=== PATIENT | male | born 1995 | race Caucasian/White ===

== ENCOUNTER 2024-05-01 20:23 | Inpatient (IN) | payer BC, SELFPAY ==
[2024-05-01] VITALS (8 sets, daily range): BP systolic 106–146; BP diastolic 74–96; BMI 23.5; BMI 23.0
--- NOTE | 2024-05-01 16:09 | ED.GENMED ---
History of Present Illness
<Viry Lopez PA-C - Last Filed: 05/01/24 23:56>
General
Chief Complaint: Breathing Problem
Source: patient
Exam Limitations: none
Time Seen by Provider: 05/01/24 16:07
Nursing documentation reviewed up to this point in time: agreed with
Travel History
Have you had any contact with someone who has COVID-19?: No
Do you have any symptoms of coronavirus? Fever > 100 degrees, chills, cough, shortness of breath, sore throat, loss of taste or smell, muscle aches, or headache?: No
History of Present Illness
History of Present Illness:
Patient is a 29-year-old male presenting to the emergency department for evaluation of persistent cough and congestion. Patient states that he has had an ongoing productive cough with foul tasting yellow sputum and congestion for 3 weeks now.
Symptoms initially started with headache, intermittent body aches. He does also report low-grade fevers at home up to 100.6F and occasional night sweats. Over the past 2 months patient does endorse an approximately 15 pound weight loss. Patient
denies any current headache, sore throat, ear pain, abdominal pain, pain in lower extremities. Patient denies any shortness of breath.
Patient was seen in urgent care today due to persistent nature of symptoms and found to have a cavitary lesion on the chest x-ray. He was sent for further evaluation.
Patient denies any known sick contacts. No one at home is sick with similar symptoms. Patient's is expecting their first child.
Patient endorses travel to [place] at end of February. He has received all childhood vaccines. Did not receive influenza vaccine this year.
Past History
<Viry Lopez PA-C - Last Filed: 05/01/24 23:56>
Past History
ED Past Medical History: Other (Had episodes of chest pains at 10-12 yrs of age. Had EKG and US of heart. Followed up with [facility] cardiology and was cleared and played soccer for next few years with few intermittent episodes of chest pain. Chest pain
in the past 10 days feels 'different' than all those other episodes.); Negative Asthma, HTN, Hypercholesterolemia or NIDDM
ED Past Surgical History: Other (wisdom teeth)
Social History
Tobacco: Former smoker
Alcohol: Occasional
Personal:
Living: with family
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
Family History
Family History: Other (Moms brother with cardiomegally and low EF, CHF in his early 40's. Brother ignored symptoms over a period of years, when he finally went to ER CP was so bad and found to have above problems.)
Review of Systems
<Viry Lopez PA-C - Last Filed: 05/01/24 23:56>
Review of Systems
Allergies reviewed?: Yes
All Other Systems: ROS reviewed and negative except as documented in HPI and ROS
Phy Exam
<Viry Lopez PA-C - Last Filed: 05/01/24 23:56>
Physical Exam
Physical Exam:
Vitals: Patient's vital signs are stable. Afebrile
General: Patient is well appearing, no acute distress. Nontoxic-appearing
Skin: Warm and dry, no rashes or lesions
Head: Normocephalic, atraumatic
Eyes: Sclera nonicteric. EOMs intact. No nystagmus.
Throat: Protecting airway
Neck: Normal ROM, no cervical spine tenderness, no meningismus. Trachea midline
Cardiac: Regular rate and rhythm, no murmurs.
Pulm: Normal respiratory effort.
Abdomen: Abdomen soft. No abdominal tenderness.
Extremities: No evidence of cyanosis or edema. Good distal pulses.
Neuro: AAOx3. CN II-XII intact. No focal neurologic deficits.
Psychiatric: Normal affect.
Course
<Viry Lopez PA-C - Last Filed: 05/01/24 23:56>
Orders/Labs/Results
Orders:
Orders
05/01/24 Dinner
Regular
At Your Request: Full Participation
05/01/24 16:50
CRP [C-Reactive Protein] Urgent
Complete Blood Count/With Diff Urgent
Comprehensive Metabolic Panel Urgent
05/01/24 16:[address] [CT Chest W/o Iv Contrast] Urgent
Comment: cavitary RUL lesion seen on chest xray
Reason For Exam: productive cough, low grade fevers
05/01/24 17:43
AFB Culture [Acid Fast Culture & Smear] Urgent
IGNACIO Source: Sputum
Specimen Description:
Date Specimen was Collected: 05/01/24
Time Specimen was Collected: 17:36
Sputum Culture [Respiratory Culture/Gram Stain] Urgent
IGNACIO Source: Sputum
Specimen Description:
Date Specimen was Collected: 05/01/24
Time Specimen was Collected: 17:36
05/01/24 19:33
Piperacillin/Tazo 3.375 Gram [Zosyn] 3.375 gram in 50 ml IV NOW
Vancomycin 1 Gram/200 ml [Vancocin] 1 gram in 200 ml IV NOW
05/01/24 19:50
Admit/Transfer Patient As Directed
Co-Sign Provider:
Level of Care: Inpatient admission
Assign to:: Medical/Surgical
Physician / Group: gerard oliver
Diagnosis: cavitary lesion concern for bacterial vs TB
Reason for Hospitalization: cavitary lesion concern for bacterial vs TB
Expected length of stay greater than two midnights?: Yes
ELOS- Estimated Length of Stay in days: 4
I certify the patient meets the requirements for IP care: Yes
05/01/24 19:57
INFECTIOUS DISEASE CONSULT Routine
Consulting Provider: Paz Braxton
Was physician already notified: Yes
05/01/24 20:05
Code Status As Directed
Resuscitation Status: Full Code
05/01/24 21:21
Acetaminophen [Tylenol] 650 mg PO Q4HPRN PRN
05/01/24 21:21
Consult Infectious Disease [INFECTIOUS DISEASE CONSULT] Routine
Consulting Provider: Paz Braxton
Was physician already notified: Yes
Reason for consult: Cavitary lesion
Activity As Directed
Activity Level: As Tolerated
Precautions As Directed
Type of Precautions: Airborne
Vital Signs As Directed
Frequency: Per unit guidelines
Pulse Ox/spot Check [RESP] Routine
Quantity: 1
Pt Eval And Treat Routine
Activity Level: As Tolerated
DX Deep Vein Thrombosis Video Routine
05/01/24 22:00
VANCOMYCIN Pharmacy to Dose [VANCOCIN Pharmacy to Dose] 1 each Pharmacy To Prepare [Call Pharmacy To Prepare] 0 ml IV PER PROTOCOL
05/02/24 02:00
Piperacillin/Tazo 3.375 Gram [Zosyn] 3.375 gram in 50 ml IV Q6H
05/02/24 06:00
AFB Culture [Acid Fast Culture & Smear] IN AM
IGNACIO Source: Sputum
Specimen Description:
Basic Metabolic Panel IN AM
Complete Blood Count/With Diff IN AM
QuantiFERON-TB Gold Plus [S] IN AM
Sputum Culture [Respiratory Culture/Gram Stain] IN AM
IGNACIO Source: Sputum
Specimen Description:
05/02/24 18:00
Enoxaparin Sodium [Lovenox] 40 mg SC QPM
05/03/24 06:00
AFB Culture [Acid Fast Culture & Smear] IN AM
IGNACIO Source: Sputum
Specimen Description:
Basic Metabolic Panel IN AM
Complete Blood Count/With Diff IN AM
05/04/24 06:00
AFB Culture [Acid Fast Culture & Smear] IN AM
IGNACIO Source: Sputum
Specimen Description:
Basic Metabolic Panel IN AM
Complete Blood Count/With Diff IN AM
Abnormal Lab Results
05/01/24
16:50
WBC 13.1 H 10^3/uL
(4.8-10.8)
Absolute Neuts (auto) 9.8 H 10^3/uL
(1.4-6.5)
Absolute Monos (auto) 0.9 H 10^3/uL
(0.1-0.6)
Lymphocytes % 17.8 L %
(20.5-51.1)
C-Reactive Protein 61.10 H mg/L
(0.0-10.00)
05/01/24 16:50
05/01/24 16:50
Vital Signs
Initial and Last Documented VS:
Initial Vital Signs
Temp Pulse Resp BP Pulse Ox
98.3 F 87 18 146/96 98
05/01/24 15:29 05/01/24 15:29 05/01/24 15:29 05/01/24 15:29 05/01/24 15:29
Last Documented Vital Signs
Temp Pulse Resp BP Pulse Ox
98.4 F 76 16 116/78 98
05/01/24 23:20 05/01/24 23:20 05/01/24 23:20 05/01/24 23:20 05/01/24 23:20
<Jamaal Lopes, DO - Last Filed: 05/01/24 17:31>
Orders/Labs/Results
Orders:
Orders
05/01/24 Dinner
Regular
At Your Request: Full Participation
05/01/24 16:50
CRP [C-Reactive Protein] Urgent
Complete Blood Count/With Diff Urgent
Comprehensive Metabolic Panel Urgent
05/01/24 16:[address] [CT Chest W/o Iv Contrast] Urgent
Comment: cavitary RUL lesion seen on chest xray
Reason For Exam: productive cough, low grade fevers
05/01/24 17:43
AFB Culture [Acid Fast Culture & Smear] Urgent
IGNACIO Source: Sputum
Specimen Description:
Date Specimen was Collected: 05/01/24
Time Specimen was Collected: 17:36
Sputum Culture [Respiratory Culture/Gram Stain] Urgent
IGNACIO Source: Sputum
Specimen Description:
Date Specimen was Collected: 05/01/24
Time Specimen was Collected: 17:36
05/01/24 19:33
Piperacillin/Tazo 3.375 Gram [Zosyn] 3.375 gram in 50 ml IV NOW
Vancomycin 1 Gram/200 ml [Vancocin] 1 gram in 200 ml IV NOW
05/01/24 19:50
Admit/Transfer Patient As Directed
Co-Sign Provider:
Level of Care: Inpatient admission
Assign to:: Medical/Surgical
Physician / Group: gerard oliver
Diagnosis: cavitary lesion concern for bacterial vs TB
Reason for Hospitalization: cavitary lesion concern for bacterial vs TB
Expected length of stay greater than two midnights?: Yes
ELOS- Estimated Length of Stay in days: 4
I certify the patient meets the requirements for IP care: Yes
05/01/24 19:57
INFECTIOUS DISEASE CONSULT Routine
Consulting Provider: Paz Braxton
Was physician already notified: Yes
05/01/24 20:05
Code Status As Directed
Resuscitation Status: Full Code
05/01/24 21:21
Acetaminophen [Tylenol] 650 mg PO Q4HPRN PRN
05/01/24 21:21
Consult Infectious Disease [INFECTIOUS DISEASE CONSULT] Routine
Consulting Provider: Paz Braxton
Was physician already notified: Yes
Reason for consult: Cavitary lesion
Activity As Directed
Activity Level: As Tolerated
Precautions As Directed
Type of Precautions: Airborne
Vital Signs As Directed
Frequency: Per unit guidelines
Pulse Ox/spot Check [RESP] Routine
Quantity: 1
Pt Eval And Treat Routine
Activity Level: As Tolerated
DX Deep Vein Thrombosis Video Routine
05/01/24 22:00
VANCOMYCIN Pharmacy to Dose [VANCOCIN Pharmacy to Dose] 1 each Pharmacy To Prepare [Call Pharmacy To Prepare] 0 ml IV PER PROTOCOL
05/02/24 02:00
Piperacillin/Tazo 3.375 Gram [Zosyn] 3.375 gram in 50 ml IV Q6H
05/02/24 06:00
AFB Culture [Acid Fast Culture & Smear] IN AM
IGNACIO Source: Sputum
Specimen Description:
Basic Metabolic Panel IN AM
Complete Blood Count/With Diff IN AM
QuantiFERON-TB Gold Plus [S] IN AM
Sputum Culture [Respiratory Culture/Gram Stain] IN AM
IGNACIO Source: Sputum
Specimen Description:
05/02/24 18:00
Enoxaparin Sodium [Lovenox] 40 mg SC QPM
05/03/24 06:00
AFB Culture [Acid Fast Culture & Smear] IN AM
IGNACIO Source: Sputum
Specimen Description:
Basic Metabolic Panel IN AM
Complete Blood Count/With Diff IN AM
05/04/24 06:00
AFB Culture [Acid Fast Culture & Smear] IN AM
IGNACIO Source: Sputum
Specimen Description:
Basic Metabolic Panel IN AM
Complete Blood Count/With Diff IN AM
Abnormal Lab Results
05/01/24
16:50
WBC 13.1 H 10^3/uL
(4.8-10.8)
Absolute Neuts (auto) 9.8 H 10^3/uL
(1.4-6.5)
Absolute Monos (auto) 0.9 H 10^3/uL
(0.1-0.6)
Lymphocytes % 17.8 L %
(20.5-51.1)
C-Reactive Protein 61.10 H mg/L
(0.0-10.00)
05/01/24 16:50
05/01/24 16:50
Vital Signs
Initial and Last Documented VS:
Initial Vital Signs
Temp Pulse Resp BP Pulse Ox
98.3 F 87 18 146/96 98
05/01/24 15:29 05/01/24 15:29 05/01/24 15:29 05/01/24 15:29 05/01/24 15:29
Last Documented Vital Signs
Temp Pulse Resp BP Pulse Ox
98.4 F 76 16 116/78 98
05/01/24 23:20 05/01/24 23:20 05/01/24 23:20 05/01/24 23:20 05/01/24 23:20
<Viry Lopez PA-C - Last Filed: 05/01/24 23:56>
MDM/Problems Addressed
Differential Diagnosis Includes:
Not limited to: Fungal infection, pulmonary abscess, tuberculosis, pneumonia, malignancy
MDM/Problems Addressed:
29-year-old male presenting with 3 weeks of cough, congestion associated with low-grade fever, chills, body aches. Also noted 15 pound weight loss over the past few months. Seen in urgent care earlier today with chest x-ray that showed possible
cavitary lesion in right upper lobe. Sent to emergency department for further evaluation. Recent travel to [place] in February. Otherwise no known sick contacts. Vital stable. Patient is afebrile. Exam as above. Patient is non toxic appearing.
Lungs clear bilaterally. Will check labs, chest CT for further evaluation of lesion in right lung. Did discuss with infectious disease and will place patient on airborne precaution. Will evaluate for possible tuberculosis. Sputum culture, AFB
sputum culture x 3, quant gold ordered. Patient otherwise comfortable at this time. Will monitor closely reassess.
Labs noted. Mild leukocytosis of 13.1, no left shift.. Otherwise no clinically significant abnormalities. Chest CT does show a loculated thick-walled cavitary lesion in the posterior aspect of the right upper lobe. Pulmonary abscess versus
malignancy. Clinically�most suspicious for pulmonary abscess. Will start patient on IV antibiotics, bank/Zosyn. Will admit patient to hospitalist service for further evaluation/management. Plan for likely biopsy with IR/CT surgery. ID will
consult in the morning. Discussed with patient. Patient mated to hospitalist
Chronic conditions affecting care:
N/A
Acute Exacerbation and/or Progression of Chronic Illness:
N/A
<Viry Lopez PA-C - Last Filed: 05/01/24 23:56>
*Radiology
Radiology exam reviewed: preliminary read by ED provider and radiology read reviewed
*Pulse Oximetry
Patient hypoxic: no
*EKG
Interpreted by ED Provider?: NA
*Oyster Tonger Interpretation
Rate: Oyster Tonger- N/A
*Critical Care Note
Total Time (30-74mins, 75-104mins- exclusive of procedures): Not Applicable
Data Reviewed
Review of Other/Old Records Reveals: Radiology Studies (X-ray performed outpatient at urgent care)
Source: previous radiology exam
<Viry Lopez PA-C - Last Filed: 05/01/24 23:56>
Patient Management
Discussion with other providers: Hospitalist and Rolling Machine Operator (Infectious disease)
ED Attending Note
<Viry Lopez PA-C - Last Filed: 05/01/24 23:56>
-
Portions of this chart may have been created with voice recognition software.� Occasional wrong word or��sound alike� substitutions may have occurred due to the inherent limitations of voice recognition software.
<Jamaal Lopes DO - Last Filed: 05/01/24 17:31>
ED Attending Note
Patient seen and examined by attending physician: Yes
I performed a history and physical exam of patient and discussed management with resident, I reviewed resident's note and agree with documented findings and plan of care.: Yes
ED Attending Note:
I have reviewed and agree with history and treatment plan by Viry Lopez. Patient is nontoxic well-appearing. Clear lungs. Ongoing cough and congestion. Chest x-ray with possible cavitary versus rounded lesion. Will perform testing for TB,
and sputum cultures. CT chest ordered
Discharge Plan
Departure
Patient Disposition: Admit
Date of Disposition: 05/01/24
Time of Disposition: :24
Presentation/result/management discussed w/ accepting MD/DO: Hospitalist
Discharge Problem:
Cavitary lesion of lung
Interventions
Interventions:
*Risk Screen - Suicide Last Done: 05/01/24 15:29
*General Assessment Last Done: 05/01/24 15:29
*Neglect/Abuse Screening Last Done: 05/01/24 15:29
ED- Fall Risk Assessment Last Done: 05/01/24 16:18
*ED COVID-19 Vaccine History Last Done: 05/01/24 16:18
*Nursing Disposition Last Done: 05/01/24 21:23
ED- Cardiac Assessment Last Done: 05/01/24 16:18
ED- Pulmonary Assessment Last Done: 05/01/24 16:18
Discharge Date and Time
Discharge Date/Time: 05/01/24 21:24
[2024-05-01 17:00] LABS: % Basophils 0.2 % (0-2); % Eosinophils 0.8 % (0-6); % Immature Granulocytes 0.3 % (0-0.5); % Lymphocytes 17.8 % (20.5-51.1); % Monocytes 6.7 % (1.7-9.3); % Neutrophils 74.2 % (42.2-75.2); Absolute Eosinophils 0.1 10^3/uL (0-0.7); Absolute Lymphocytes 2.3 10^3/uL (1.2-3.4); Absolute Monocytes 0.9 10^3/uL (0.1-0.6); Absolute Neutrophils 9.8 10^3/uL (1.4-6.5); Hemoglobin 13.8 g/dL (13.0-18.0); Mean Corp Hgb Conc. 34.5 g/dL (33.0-37.0); Mean Corpuscular Hgb 28.9 pg (27.0-31.0); Mean Corpuscular Volume 83.7 fL (80.0-94.0); Nucleated Red Blood Cells % 0 % (-); Platelet Count 340 10^3/uL (130-400); Red Blood Cell Count 4.78 10^6/uL (4.70-6.10); Red Cell Dist. Width 11.5 % (11.5-14.5); White Blood Cell Count 13.1 10^3/uL (4.8-10.8)
[2024-05-01 17:13] LABS: ALT (SGPT) 32 U/L (0-50); AST (SGOT) 25 U/L (17-59); Albumin 4.5 g/dl (3.5-5.0); Alkaline Phosphatase 92 U/L (38-126); Blood Urea Nitrogen 14 mg/dl (9-20); Calcium 10.1 mg/dl (8.4-10.2); Carbon Dioxide 25 mmol/L (22-30); Chloride 100 mmol/L (98-107); Estimated Creatinine Clearance > 125 ml/min; Glucose 97 mg/dl (70-99); Potassium 4.2 mmol/L (3.5-5.1); Sodium 137 mmol/L (135-145); Total Protein 7.9 g/dl (6.3-8.2); eGFR > 60.00
--- NOTE | 2024-05-01 19:45 | HPS.HSE ---
Family Physician
-
Family Physician: Bobby Decker
Chief Complaint
-
Productive cough, fevers, body aches, weight loss
History of Present Illness
29-year-old male complaining of persistent cough and congestion. He reports a foul tasting yellow sputum over the past 1.5 weeks and productive yellow sputum for the past 3 weeks with headache and intermittent body aches along with low-grade fevers
up to 100.6 F and night sweats. He also reports a 15 pound weight loss over the past 2 months. He denies any current headache, sore throat, shortness of breath, negative hemoptysis, chest pain, palpitations, abdominal pain, nausea, vomiting,
diarrhea. He denies any sick contacts, he does report travel to [place] at beginning of February. He reports he was on a business trip stayed at the hotel in the [place] with his did not have any excursions. He does report he did receive all
childhood vaccines including up-to-date Tdap 2 years ago. He denies any past medical history. Past surgical history includes wisdom teeth extraction
Medical History
Past Medical History
Past Medical History: Reports None
Past Surgical History: Reports Other
Additional Past Surgical History:
[place] teeth extraction
Social History
Tobacco: Non-smoker
Alcohol: None
Drug: Marijuana (Occasional)
Personal:
Living: With Family ( , 2 children ages 2 and 4)
Employment: Employed
Family History
Family History: Other (Mother DM 2, father healthy)
Allergies / Home Medications
Allergies reflects when Allergies were last updated in [facility].
Home Medications with original date entered in [facility]
Allergy/Medication List:
Allergies
Allergy/AdvReac Type Severity Reaction Status Date / Time
seasonal Allergy itchy eyes Uncoded 05/01/24 15:29
Home Medications
No Meds [No Current Medications] 05/01/24
Review of Systems
-
History Source: Patient
A 12 point ROS was completed and negative except as noted: Yes
Constitutional: Reports Weight Loss (15 pounds x 2 months) and Night Sweats (On and off); Denies Fever or Chills
EENT: Denies Sore Throat or Runny Nose
Respiratory: Reports Cough (Yellow in color); Denies Hemoptysis or Trouble Breathing
Cardiac: Denies Chest Pain, Diaphoresis, Palpitations or Syncope
Abdomen/GI: Denies Abdominal Pain, Nausea, Vomiting, Diarrhea, Constipated, Bloody Stools or Black Stools
: Denies Dysuria, Frequency, Flank Pain, Incontinence, Difficulty Voiding or Urgency
Musculoskeletal: Denies Joint Pain or Edema
Skin: Denies Itching or Rash
Neurological: Reports Headache; Denies Dizzy, Weakness or Numbness
Endocrine: Reports No Symptoms
Hematologic/Lymphatic: Reports No Symptoms
Psych: Reports Calm
Physical Exam
Vital Signs
Vital Signs
Temp Pulse Resp BP Pulse Ox
98.3 F 83 11 128/76 99
05/01/24 15:29 05/01/24 18:45 05/01/24 18:45 05/01/24 18:30 05/01/24 18:45
Physical Exam
General: Comfortable and Conversant; No Pain, Fever or Chills
HEENT: NormoCephalic, Anicteric, Moist mucous membranes, PERRLA, [place] Conjunctivae and No Ptosis
Respiratory: Clear; No Wheezes, Rales or Rhonchi
Cardiac: S1/S2 and Regular Rhythm; No Murmur, Rub, Gallop or Peripheral Edema
Breast: Deferred by me
GI: Soft, Non Tender, Non Distended, Normal Bowel Sounds and No Hepatosplenomegaly
Rectal: Deferred by Provider
Genito-urinary: Deferred by me
Musculoskeletal: No Clubbing, No Cyanosis and No Edema
Skin: Warm and Dry; No Rash or Jaundice
Neuro: AO x 3, No Motor Deficits, Nonfocal/grossly intact, Cranial Nerves Intact and No Sensory Deficits; No Slurred Speech, Facial Droop or Tremors
Psych: Calm
Laboratory Results
-
05/01/24 16:50
05/01/24 16:50
Laboratory Results
Total Bilirubin 1.0 mg/dl (0.2-1.3) 05/01/24 16:50
AST 25 U/L (17-59) 05/01/24 16:50
ALT 32 U/L (0-50) 05/01/24 16:50
Alkaline Phosphatase 92 U/L (38-126) 05/01/24 16:50
Data Reviewed
-
CT Scan: Report Reviewed by me
Lab Data: Labs Reviewed by me
Impression/Plan
-
Impression/plan:
Admit to MedSurg
#Cavitary lesion right upper lobe concern for pulmonary abscess versus malignancy
WBC 13.1 no shift, 98.3, CRP 61
-AFB x 3 sets, quant gold, sputum culture per ID
-Consult ID
-Consult IR for biopsy
-IV vancomycin, IV Zosyn
-Tylenol as needed fever
-Will place patient on Airborne precautions
CT chest with IV contrast: Loculated thick-walled cavitary lesion with internal air-fluid level in the lower posterior aspect of the right upper lobe measuring 4.5 x 5 x 4.5 cm differential includes cavitary pulmonary
malignancy or pulmonary abscess biopsy/aspiration would be used for further eval
DVT prophylaxis
Subcu heparin
Full code
[2024-05-01] MEDS: ZOSYN 50 IV (19:54)
--- NOTE | 2024-05-01 20:08 | W.PN.UPDATE ---
Update Note
Progress Note Update
This is an addendum to the H&P written by DAMIAN Villar on 05/01/2024.
29-year-old male no past medical history of presenting for persistent cough and congestion for the past 3 weeks associate with headache and bodyaches and low-grade fevers/night sweats as well as weight loss of 15 pounds.� At urgent care today he was
found to have cavitary lesion on chest x-ray.� He recently traveled to [place] at the end of February.� No sick contacts.
CT chest shows loculated thick-walled cavitary lesion with internal air-fluid level in the lower posterior aspect of the right upper lobe measuring 4.5 x 5 x 4.5 cm.� Clinically likely pulmonary abscess.
Sputum culture, blood cultures, AFB cultures x 3.� Vancomycin/Zosyn.� ID consulted.� IR consulted for biopsy.
[2024-05-01] MEDS: VANCOCIN 200 IV ×2 (21:07→22:06)
--- NOTE | 2024-05-01 21:30 | PTCARENOTE ---
Received pt from ED via stretcher. Ambulated to bed independently. VSS. AAOx3. No complaints of pain. Assessed and oriented to room. Pt verbalized understanding of call clay. Call clay within close reach. Will continue to monitor.
[2024-05-01 22:06] LABS: COVID-19 Antigen Negative (Negative)
[2024-05-02] MEDS: ZOSYN 50 IV ×3 (01:50→13:11)
--- NOTE | 2024-05-02 06:59 | PHA.VAN.IN ---
Assessment
- Assessment
Renal Function: Unknown baseline (SCr 0.9 in 2015)
Maximum Temperature: 98.4
Concomitant Antimicrobials: piperacillin-tazobactam
AUC Dosing Plan
- Dosing Variables
Dosing Weight (kg): 81.24
Dosing CrCl (ml/min): 125
Vd coefficient (L/kg): 0.7
- Empiric Dosing
Initial / Loading Dose: 2000mg (1000mg 05/01 2107, 1000 mg 2205) 24 mg/kg
Maintenance Regimen: 1000 mg q8h
Estimated AUC (mcg*h/mL): 514
Estimated Peak (mcg*h/mL): 30.4
Estimated Trough (mcg/ml): 14.2
Estimated Half Life (H): 6.4
- Monitoring
Peak level is ordered to be drawn (date/time): 05/03 30
Trough level is ordered to be drawn (date/time): 05/03 530
Levels to be Drawn after Dose #: 4
MRSA Screen: Ordered per protocol (PCR)
Pharmacokinetics Vancomycin I
- -
Patient Age: 29
Patient Sex: Male
Vancomycin Day #: 1
Indication: Pulmonary/Respiratory (cavitary lesion )
Requesting Provider: Gregg Villar
Pertinent Antimicrobial Allergies:
no pertinent allergies
Height / Weight:
Height 6 ft 2 in
Actual Weight 81.25 kg
- Vital Signs / Lab Results
Temp Pulse Resp BP Pulse Ox
98.4 F 76 16 116/78 98
05/01/24 23:20 05/01/24 23:20 05/01/24 23:20 05/01/24 23:20 05/01/24 23:20
Lab Results - Hematology
05/01/24 05/02/24
16:50 00:54
WBC 13.1 H Cancelled
Lab Results - Chemistry
05/01/24 05/02/24
16:50 00:54
BUN 14 Cancelled
Creatinine 0.8 Cancelled
Estimated Creat Clear > 125 Cancelled
Albumin 4.5
Microbiology Results
05/01/24 21:43 Influenza Types A & B (LISA) - Final
Nasal Swab Negative for Influenza A & B, NAAT
Negative results must be combined with clinical observations
and patient history.
Nucleic Acid Amplification test (NAAT)performed on the
[employer] platform.
05/01/24 17:43 Respiratory Culture - Final
Sputum Gram Stain - Final
[2024-05-02 07:00] VITALS: BP 124/87
[2024-05-02 07:35] LABS: % Basophils 0.2 % (0-2); % Eosinophils 2.1 % (0-6); % Immature Granulocytes 0.4 % (0-0.5); % Lymphocytes 27.7 % (20.5-51.1); % Monocytes 8.9 % (1.7-9.3); % Neutrophils 60.7 % (42.2-75.2); Absolute Eosinophils 0.2 10^3/uL (0-0.7); Absolute Lymphocytes 2.3 10^3/uL (1.2-3.4); Absolute Monocytes 0.8 10^3/uL (0.1-0.6); Absolute Neutrophils 5.1 10^3/uL (1.4-6.5); Hematocrit 38.4 % (39.0-52.0); Hemoglobin 13.3 g/dL (13.0-18.0); Mean Corp Hgb Conc. 34.6 g/dL (33.0-37.0); Mean Corpuscular Hgb 28.5 pg (27.0-31.0); Mean Corpuscular Volume 82.4 fL (80.0-94.0); Mean Platelet Volume 8.8 fL (7.4-10.4); Nucleated Red Blood Cells % 0 % (-); Platelet Count 328 10^3/uL (130-400); Red Blood Cell Count 4.66 10^6/uL (4.70-6.10); Red Cell Dist. Width 11.7 % (11.5-14.5); White Blood Cell Count 8.5 10^3/uL (4.8-10.8)
[2024-05-02] MEDS: VANCOCIN 200 IV ×3 (07:56→22:03)
[2024-05-02 08:01] LABS: Blood Urea Nitrogen 15 mg/dl (9-20); Calcium 9.8 mg/dl (8.4-10.2); Carbon Dioxide 27 mmol/L (22-30); Chloride 102 mmol/L (98-107); Estimated Creatinine Clearance 124 ml/min; Glucose 104 mg/dl (70-99); Sodium 139 mmol/L (135-145); eGFR > 60.00
--- NOTE | 2024-05-02 08:23 | CON.ID ---
Consultation
-
Date/Time Consultation Requested: May 01, 20241956
Date/Time Consultation Performed: May 02, 2024 0830
Requesting Provider: Dr. Garrett Skinner
Performing Provider: Dr. Paz Braxton
Reason for Consultation: Cavitary lung lesion
Chief Complaint / Past History
Chief Complaint
Cough, fever, weight loss
History of Present Illness
29-year-old male without significant past medical history who presented to the ER on May 01 due to finding of right upper lobe cavitary lesion at urgent care. White count 13. CAT scan shows thick walled cavity with air-fluid level. Patient
reports that his symptoms started approximately 3 weeks ago with headache and dry cough as well as low-grade fever. He had sinus congestion. His cough got worse with increased sputum production now dark yellow with a funny taste. Fevers have been
100.4. He has been having night sweats. He reports about 15 pound unintentional weight loss over the past 2 to 3 months. He attributed that to not going to the gym. No known TB exposure. 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 Early February his company
sponsored a trip to [place] for 3 days at a resort. He went on a trip with his . They did not leave the resort. Other past travel history included [place] in 2022, [place], [place] in 2016. No dental issues. He takes good care of his teeth
and flosses every day. Swallow function is fine. He has never been homeless. He has lived in the [facility] all his life.
Past History
Past Medical History: None
Additional Past Surgical History:
[place] teeth extraction.
Allergy History:
seasonal Allergy (Uncoded 05/01/24 15:29)
itchy eyes
Medications Reviewed: Yes
Current Antibiotics:
Vancomycin
Zosyn
Social History
Tobacco: Non-Smoker
Alcohol: None
Drug: Marijuana
Personal:
Living: With Family ( and 2 young children. )
Employment: Employed ([employer])
Family History
Family History: Not Pertinent
Review of Systems
Review of Systems
General: Fever and Change in Appetite
HEENT: Negative Stiff Neck, Headache or Pharyngitis
Cardiovascular: Negative Edema or Palpitations
Respiratory: Dyspnea, Cough and Sputum Production
Gasteroenterology: Other (no diarrhea); Negative Nausea or Vomiting
Genital / Urological: Negative Dysuria or Flank Pain
Endocrine: Weakness
Musculoskeletal: Negative Arthralgias
Skin / Hair / Nails: Negative Rash
Neurological: Negative Headache or Dizziness
All systems: All other systems were reviewed and were negative
Vital Signs
Temp Pulse Resp BP Pulse Ox
98.4 F 76 16 116/78 98
05/01/24 23:20 05/01/24 23:20 05/01/24 23:20 05/01/24 23:20 05/01/24 23:20
Physical Exam
Physical Exam
Constitutional: No Acute Distress
Eyes: No Conjunctival Hemorrhage and Sclera Anicteric
Pharynx: Benign
Oral: No Thrush and Other (Dentition fine )
Cardiovascular: Regular Rate and S1/S2
Pulmonary: Clear
Gastrointestinal: Soft, Non Tender, Non Distended and Normal Bowel Sounds
Genito-Urinary: Negative CVA Tenderness
Extremities: Negative Edema
Neurological: AO x 3
Lab / Diagnostic Study Results
05/02/24 06:41
05/02/24 06:42
Abs Immat Gran (auto) 0.0 10^3/uL (0-0.05) 05/02/24 06:41
Absolute Neuts (auto) 5.1 10^3/uL (1.4-6.5) 05/02/24 06:41
Absolute Lymphs (auto) 2.3 10^3/uL (1.2-3.4) 05/02/24 06:41
Absolute Monos (auto) 0.8 10^3/uL (0.1-0.6) H 05/02/24 06:41
Absolute Basos (auto) 0.0 10^3/uL (0-0.2) 05/02/24 06:41
Immature Gran % 0.4 % (0-0.5) 05/02/24 06:41
Neutrophils % 60.7 % (42.2-75.2) 05/02/24 06:41
Lymphocytes % 27.7 % (20.5-51.1) 05/02/24 06:41
Monocytes % 8.9 % (1.7-9.3) 05/02/24 06:41
Eosinophils % 2.1 % (0-6) 05/02/24 06:41
Basophils % 0.2 % (0-2) 05/02/24 06:41
C-Reactive Protein 61.10 mg/L (0.0-10.00) H 05/01/24 16:50
Microbiology Results
Micro:
05/02/24 00:54 Respiratory Culture - Pending
Sputum Gram Stain - Pending
05/01/24 21:43 Influenza Types A & B (LISA) - Final
Nasal Swab Negative for Influenza A & B, NAAT
Negative results must be combined with clinical observations
and patient history.
Nucleic Acid Amplification test (NAAT)performed on the
[employer] platform.
05/01/24 17:43 Respiratory Culture - Final
Sputum Gram Stain - Final
05/01/24 17:43 Acid Fast Bacilli Smear - Pending
Sputum Acid Fast Bacilli Culture - Pending
05/01/24 CXR Cavitary right upper lobe lesion.
05/01/[address]: There is a loculated thick-walled cavitary lesion with internal air-fluid level in the lower posterior aspect of the right upper lobe. This lesion measures approximately 4.5 x 5 x 4.5 cm
Assessment / Plan
# RUL thick-walled cavitary lesion with airfluid level
# 3 weeks cough, fever, nightsweats
# Unintentional weight loss
- Suspect lung abscess.
However, need to rule out TB
- Per IR, minimal fluid to aspirate
-Await QTB gold plus.
- Sputum AFB #1 pending. Need Sputum AFB #2 and #3.
If all 3 AFB smears neg, can dc airborne.
-Follow sputum culture.
-Narrow Zosyn to Unasyn.
-Continue Vancomycin for now pending cx.
Care Review
Plan reviewed with: Physician (Dr Skinner)
--- NOTE | 2024-05-02 09:30 | W.PN.HOSP.TC ---
Today's Communication/Plan
-
AFB
Blood cultures
Continue antibiotics
Eventual biopsy
Assessment / Plan
Assessment / Plan
29-year-old male productive cough body aches and fever with 15 pound weight loss over the past 2 months. He traveled to [place] in February. He said that the whole family was sick around that time and he never recovered completely. States that he
also has some pain on the right side when he coughs
Awake alert oriented
Cardiovascular system S1-S2 appreciated
Chest clear to auscultation
No pedal edema
No rashes
No lymph node enlargement that I can feel upper body
# Cavitary lesion right upper lobe
IR consulted for biopsy/drainage
Cytology and pathology and cultures
Currently on vancomycin and Zosyn
ID consulted
I have reached out to pulmonary and interventional radiology to see what would be the best option for biopsy EBUS versus IR guided
Check AFB
Patient on airborne precautions
# 15 pound weight loss
#Nonsmoker
#DVT prophylaxis-Lovenox
# Full code
D/W IRAD
D/W ID
Discussed with pulmonary
Discussed with at bedside who is a nurse
Anticipated Discharge: > 48 hours
Subjective/Interval History
-
Date of Service: May 02, 2024
Objective Data
-
Labs:
Laboratory Results
05/02/24 05/02/24 05/02/24
00:54 06:41 06:42
WBC Cancelled 8.5
Hgb Cancelled 13.3
Hct Cancelled 38.4 L
Plt Count Cancelled 328
Sodium Cancelled 139 Cancelled
Potassium Cancelled 5.0 Cancelled
Chloride Cancelled 102 Cancelled
Carbon Dioxide Cancelled 27 Cancelled
BUN Cancelled 15 Cancelled
Creatinine Cancelled 1.0 Cancelled
Glucose Cancelled 104 H Cancelled
Calcium Cancelled 9.8 Cancelled
Vital Signs:
Vital Signs
Temp Pulse Resp BP Pulse Ox
97.6 F 70 16 124/87 97
05/02/24 07:00 05/02/24 07:00 05/02/24 07:00 05/02/24 07:00 05/02/24 07:00
I&O
05/01/24 05/02/24 05/03/24
06:59 06:59 06:59
Intake Total 450 / 450
Balance 450 / 450
[2024-05-02 11:20] VITALS: BMI 23.0
--- NOTE | 2024-05-02 13:54 | CM ---
CM spoke with pt on phone.
Pt lives with spouse and 2 kids in a 1[address].
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
PCP is [facility] and pharmacy is [facility].
Discharge dispo home no needs.
CM to follow and assist.
--- NOTE | 2024-05-02 14:25 | CON.PUL ---
Consultation
Consultation Request
Date/Time Consultation Requested: 05/02/2024 - 1003
Date/Time Consultation Performed: 05/02/2024 - 1104
Requesting Provider: Dr. Skinner
Performing Provider: Dr. Reeys
Reason for Consultation: Abnormal Chest CT with cavitary lesion
Medical History
-
Chief Complaint: Cough + congestion
History of Present Illness:
29-year-old male with a past medical history of sinusitis who presents with cough and congestion. He apparently went to an urgent care and obtained a CXR which had concerning findings and he was recommended to obtain CT chest so he came here to the
ER. Vitals in the ER were stable and he was afebrile to 98.3 �F, saturating 98% on room air with BP 146/96. Labs showed leukocytosis to 13.1, CRP was elevated at 61, and COVID antigen was negative. Subsequent CT chest was obtained showing a
loculated thick-walled cavitary lesion in the posterior right upper lobe measuring 4.5 x 5 x 4.5. Respiratory culture + sputum AFB were collected in addition to blood cultures. Zosyn was given in the ER. He was admitted to the floor with
infectious disease consulted, antibiotics have been continued. Interventional radiology was consulted for aspiration however there is minimal fluid to aspirate so this was deferred. Patient has been also in reporting night sweats in addition to
unintentional weight loss. Pulmonary now consulted for additional management/recommendations.
When I saw the patient he was laying in bed in no acute distress. He says his cough is better but still bringing up dark yellow phlegm. He also still has a bad taste in his mouth from his phlegm which tastes sweet and foul. He says that he has 2
children at home, age 2 and 4, and him and his had a headache prior to him getting worsening symptoms. He believes that he may have caught something from his kids initially. He currently denies chest pain, abdominal pain, diarrhea, headache,
fevers or chills.
PMHx: History of sinusitis
PSHx: [place] teeth
Past Medical History
Past Medical History: Other (Above as per HPI)
Past Surgical History: Other (Above as per HPI)
Social History
Tobacco: Non-smoker (Remote history of social tobacco use when he was a teenager)
Alcohol: Occasional
Drug: Marijuana
Personal:
Living: With Family ( and 2 young children)
Employment: Employed ([employer])
Family History
Family History: CAD (Paternal uncle), Cancer (Maternal grandmother: Breast cancer), Diabetes (Maternal uncle) and Hypertension (Paternal uncle)
Allergies / Home Medications
Allergies
Allergy/AdvReac Type Severity Reaction Status Date / Time
seasonal Allergy itchy eyes Uncoded 05/01/24 15:29
Home Medications
�Medication �Instructions �Recorded �Confirmed �Last Taken �Type
No Meds [No Current Medications] 05/01/24 05/01/24 Unknown History
Review of Systems
-
History Source: Patient
All other systems: Negative unless noted
Vitals / Labs / Diagnostic Testing
Vital Signs
Temp Pulse Resp BP Pulse Ox
97.8 F 64 16 129/77 98
05/02/24 15:00 05/02/24 15:00 05/02/24 15:00 05/02/24 15:00 05/02/24 15:00
Lab Data
05/02/24 06:41
05/02/24 06:42
Microbiology
05/02/24 00:54 Sputum Gram Stain - Preliminary
05/02/24 09:40 Nose Nasal Screen MRSA (PCR) - Final
MRSA not detected - performed by PCR methodology.
05/01/24 21:43 Nasal Swab Influenza Types A & B (LISA) - Final
Negative for Influenza A & B, NAAT
Negative results must be combined with clinical observations
and patient history.
Nucleic Acid Amplification test (NAAT)performed on the
[employer] platform.
05/01/24 17:43 Sputum Respiratory Culture - Final
05/01/24 17:43 Sputum Gram Stain - Final
Diagnostic Testing:
Physical Exam
-
HEENT: Normocephalic and Anicteric
Cardiovascular: S1/S2 and Peripheral Edema (Negative)
Respiratory: Wheeze (Negative), Rales (Callahan in the right middle lung field-right upper lobe) and Rhonchi (Negative)
GI: Soft, Non Distended, Non Tender and Normal Bowel Sounds
Neurology: AO x 3 and Tremors (Negative)
Skin: Warm and Dry
General: Comfortable and Chills (Negative)
Assessment
-
Assessment: 29-year-old male with a past medical history of sinusitis who presents with cough and congestion. He apparently went to an urgent care and obtained a CXR which had concerning findings and he was recommended to obtain CT chest so he
came here to the ER. Vitals in the ER were stable and he was afebrile to 98.3 �F, saturating 98% on room air with BP 146/96. Labs showed leukocytosis to 13.1, CRP was elevated at 61, and COVID antigen was negative. Subsequent CT chest was
obtained showing a loculated thick-walled cavitary lesion in the posterior right upper lobe measuring 4.5 x 5 x 4.5. Respiratory culture + sputum AFB were collected in addition to blood cultures. Zosyn was given in the ER. He was admitted to the
floor with infectious disease consulted, antibiotics have been continued. Interventional radiology was consulted for aspiration however there is minimal fluid to aspirate so this was deferred. Patient has been also in reporting night sweats in
addition to unintentional weight loss. Pulmonary now consulted for additional management/recommendations.
Impression:
#Abnormal chest CT with posterior RUL/anterior RLL cavitary lesion with adjacent tree-in-bud/nodular opacities along the right major fissure
#Suspected RUL pneumonia/CAP with cavitation - unlikely a pulmonary abscess as no obvious air-fluid level seen upon my review of the CT chest; less likely malignancy
Plan:
- Continue ABx as per ID
- Follow up sputum Cx including respiratory Cx and AFB
- Have low suspicion for TB, however he has traveled outside the country including [place] in 2017
- Check legionella and Strep PNA urine antigens
- Maintain SpO2 >90-94% with supplemental O2 as needed
- Incentive spirometer encouraged
- If we need a formal microbiological diagnosis or if RUL lesion does not improve with ABx, then we can perform bronchoscopy with biopsy
- Replete electrolytes with K>4, Mg>2
- Maintain euglycemia with goal BG >100 and <180
- prn nebulized bronchodilators
- DVT ppx
Pulmonary service will continue to follow along.
Total time spent today was 55 minutes for this encounter. Time includes reviewing laboratory test/imaging results, reviewing pertinent medical records, obtaining and reviewing medical history, performing an appropriate exam, ordering medications,
tests and procedures. Time also includes documentation of this encounter, coordinating patient care and communicating with other healthcare professionals. Total time does not include separately billed tests performed on this date of service.
Data:
CT Chest without Contrast 05-01-2024:
There is a loculated thick-walled cavitary lesion with internal air-fluid level in the lower posterior aspect of the right upper lobe.
This lesion measures approximately 4.5 x 5 x 4.5 cm in AP, transverse and craniocaudal dimensions respectively and does traverse the major fissure into the superior segment of the right lower lobe.
Differential diagnosis includes cavitary pulmonary malignancy and pulmonary abscess.
Biopsy/aspiration would be useful for further evaluation
[2024-05-02 15:00] VITALS: BP 129/77
[2024-05-02] MEDS: UNASYN IV ×2 (17:10→23:07)
[2024-05-02] MEDS: FLUSH (NSS) 2 FLUSH IV (22:04)
[2024-05-02 23:49] VITALS: BP 119/83
[2024-05-03 01:22] LABS: Vancomycin Peak 25.6 ug/ml (18-26)
[2024-05-03] MEDS: UNASYN IV ×4 (05:34→23:19)
[2024-05-03] MEDS: FLUSH (NSS) 2 FLUSH IV (05:35)
[2024-05-03] MEDS: VANCOCIN 200 IV (06:22)
[2024-05-03 06:27] LABS: % Basophils 0.4 % (0-2); % Eosinophils 3.2 % (0-6); % Immature Granulocytes 0.4 % (0-0.5); % Lymphocytes 30.5 % (20.5-51.1); % Monocytes 8.8 % (1.7-9.3); % Neutrophils 56.7 % (42.2-75.2); Absolute Eosinophils 0.3 10^3/uL (0-0.7); Absolute Lymphocytes 2.4 10^3/uL (1.2-3.4); Absolute Monocytes 0.7 10^3/uL (0.1-0.6); Absolute Neutrophils 4.4 10^3/uL (1.4-6.5); Hemoglobin 12.9 g/dL (13.0-18.0); Mean Corp Hgb Conc. 33.9 g/dL (33.0-37.0); Mean Corpuscular Hgb 28.5 pg (27.0-31.0); Mean Corpuscular Volume 83.9 fL (80.0-94.0); Mean Platelet Volume 8.7 fL (7.4-10.4); Nucleated Red Blood Cells % 0 % (-); Platelet Count 311 10^3/uL (130-400); Red Blood Cell Count 4.53 10^6/uL (4.70-6.10); Red Cell Dist. Width 11.5 % (11.5-14.5); White Blood Cell Count 7.8 10^3/uL (4.8-10.8)
[2024-05-03 06:49] LABS: Blood Urea Nitrogen 11 mg/dl (9-20); Calcium 9.7 mg/dl (8.4-10.2); Carbon Dioxide 25 mmol/L (22-30); Chloride 105 mmol/L (98-107); Estimated Creatinine Clearance > 125 ml/min; Glucose 103 mg/dl (70-99); Sodium 140 mmol/L (135-145); eGFR > 60.00
[2024-05-03 06:50] LABS: Vancomycin Trough 12.1 ug/ml (5-20)
[2024-05-03 07:30] VITALS: BP 123/78
--- NOTE | 2024-05-03 08:01 | PHA.VAN.FU ---
Vancomycin Assessment / Plan
- Assessment
Renal Function: Stable
WBC's are: WNL
In the past 24 hrs, patient has been: Afebrile
Concomitant Antimicrobials: ampicillin-sulbactam
- Assessment - Therapeutic Drug Monitoring
Extrapolated Cmax (mcg/mL): 31.7
Peak level was drawn: Appropriately
Extrapolated Cmin (mcg/mL): 11.8
Trough Drawn: Appropriately
Levels were drawn: At steady state (post 4th dose)
Calculated AUC (mcg*h/mL): 489
Calculated ke: 0.1405
Calculated half life (H): 4.9
Calculated Vd (L): 43.62
Calculated Vanc CL (ml/min): 102
- Dosing Plan
Continue: vanc 1000mg q8h
- Monitoring Plan
No level(s) ordered at this time: consider in a couple days to assess accumulation
- Follow Up
Pharmacy will continue to follow.
Vancomycin Follow UP
- -
Patient Age: 29
Patient Sex: Male
Vancomycin Day #: 2
Indication: Pulmonary/Respiratory (cavitary lesion )
Requesting Provider: Gregg Villar/ Dr Braxton
Pertinent Antimicrobial Allergies:
no pertinent allergies
Height / Weight:
Height 6 ft 2 in
Actual Weight 81.25 kg
- Vital Signs / Lab Results
Temp Pulse Resp BP Pulse Ox
98.0 F 71 18 123/78 98
05/03/24 07:30 05/03/24 07:30 05/03/24 07:30 05/03/24 07:30 05/03/24 07:30
Lab Results - Hematology
05/01/24 05/02/24 05/02/24
16:50 00:54 06:41
WBC 13.1 H Cancelled 8.5
05/03/24
05:54
WBC 7.8
Lab Results - Chemistry
05/01/24 05/02/24 05/02/24
16:50 00:54 06:41
BUN 14 Cancelled 15
Creatinine 0.8 Cancelled 1.0
Estimated Creat Clear > 125 Cancelled 124
Albumin 4.5
05/02/24 05/03/24
06:42 05:54
BUN Cancelled 11
Creatinine Cancelled 0.8
Estimated Creat Clear Cancelled > 125
Albumin
Microbiology Results
05/02/24 19:19 Legionella Urinary Antigen - Final
Urine Negative for Legionella pneumophila Serogroup 1 antigen.
A negative result does not rule out the possiblity of
Legionella infection due to other serogroups or species of
Legionella. Clinical correlation is recommended.
Streptococcus pneumoniae Antigen (M - Final
Negative for Streptococcus pneumoniae antigen.
A negative result does not exclude infection with
Streptococcus pneumoniae. Clinical correlation is
recommended.
05/02/24 00:54 Gram Stain - Preliminary
Sputum
05/02/24 09:40 Nasal Screen MRSA (PCR) - Final
Nose MRSA not detected - performed by PCR methodology.
05/01/24 21:43 Influenza Types A & B (LISA) - Final
Nasal Swab Negative for Influenza A & B, NAAT
Negative results must be combined with clinical observations
and patient history.
Nucleic Acid Amplification test (NAAT)performed on the
[employer] platform.
05/01/24 17:43 Respiratory Culture - Final
Sputum Gram Stain - Final
Therapeutic Drug Monitoring
Vancomycin Peak 25.6 ug/ml (18-26) 05/03/24 00:34
Vancomycin Trough 12.1 ug/ml (5-20) 05/03/24 05:54
--- NOTE | 2024-05-03 09:45 | W.PN.PUL3 ---
Today's Communication / Plan
-
Antibiotics as per ID
Up OOB as tolerated
Follow-up QuantiFERON
Follow-up sputum cultures including AFB
Recommend repeating CT chest in approximately 6-8 weeks to follow right upper lobe cavitary lesion to resolution
Assessment
-
Assessment: 29-year-old male with a past medical history of sinusitis who presents with cough and congestion. He apparently went to an urgent care and obtained a CXR which had concerning findings and he was recommended to obtain CT chest so he
came here to the ER. Vitals in the ER were stable and he was afebrile to 98.3 �F, saturating 98% on room air with BP 146/96. Labs showed leukocytosis to 13.1, CRP was elevated at 61, and COVID antigen was negative. Subsequent CT chest was
obtained showing a loculated thick-walled cavitary lesion in the posterior right upper lobe measuring 4.5 x 5 x 4.5. Respiratory culture + sputum AFB were collected in addition to blood cultures. Zosyn was given in the ER. He was admitted to the
floor with infectious disease consulted, antibiotics have been continued. Interventional radiology was consulted for aspiration however there is minimal fluid to aspirate so this was deferred. Patient has been also in reporting night sweats in
addition to unintentional weight loss. Pulmonary now consulted for additional management/recommendations.
Impression:
#Abnormal chest CT with posterior RUL/anterior RLL cavitary lesion with adjacent tree-in-bud/nodular opacities along the right major fissure
#Suspected RUL pneumonia/CAP with cavitation - unlikely a pulmonary abscess as no obvious air-fluid level seen upon my review of the CT chest; less likely malignancy
Plan:
- Continue ABx as per ID - currently on Unasyn s/p vanco/zosyn x 2 days
- Follow up sputum Cx including respiratory Cx and AFB
- Have low suspicion for TB, however he has traveled outside the country including [place] in 2017
- QuantiFERON is pending
- Legionella and Strep PNA urine antigens are both negative
- Maintain SpO2 >90-94% with supplemental O2 as needed
- Incentive spirometer encouraged
- If we need a formal microbiological diagnosis or if RUL lesion does not improve with ABx, then we can perform bronchoscopy with biopsy
- Replete electrolytes with K>4, Mg>2
- Maintain euglycemia with goal BG >100 and <180
- prn nebulized bronchodilators
- DVT ppx
Pulmonary service will continue to follow along. He ultimately will need to obtain repeat imaging with CT chest in about 6-8 weeks. I can arrange for this to be done and see him in the office.
Total time spent today was 35 minutes for this encounter. Time includes reviewing laboratory test/imaging results, reviewing pertinent medical records, obtaining and reviewing medical history, performing an appropriate exam, ordering medications,
tests and procedures. Time also includes documentation of this encounter, coordinating patient care and communicating with other healthcare professionals. Total time does not include separately billed tests performed on this date of service.
Data:
CT Chest without Contrast 05-01-2024:
There is a loculated thick-walled cavitary lesion with internal air-fluid level in the lower posterior aspect of the right upper lobe.
This lesion measures approximately 4.5 x 5 x 4.5 cm in AP, transverse and craniocaudal dimensions respectively and does traverse the major fissure into the superior segment of the right lower lobe.
Differential diagnosis includes cavitary pulmonary malignancy and pulmonary abscess.
Biopsy/aspiration would be useful for further evaluation
Subjective Data
-
Date of Service:
Date of Service: May 03, 2024
Chief Complaint: Pulmonary Follow Up
Subjective:
Patient seen and evaluated today at bedside. He feels much better, coughing less and bringing up less phlegm. Still has a putrid taste of his sputum but it is not worsening. Afebrile overnight. All sputum cultures are still pending. He denies
chest pain, shortness of breath, abdominal pain, fevers or chills.
Review of Systems
General: Other (Negative unless mentioned above)
Objective Data
Data Reviewed
Vital Signs / I&O / Oxygen:
Vital Signs
Temp Pulse Resp BP Pulse Ox
98.0 F 71 18 123/78 98
05/03/24 07:30 05/03/24 07:30 05/03/24 07:30 05/03/24 07:30 05/03/24 07:30
Intake and Output
05/02/24 05/03/24 05/04/24
06:59 06:59 06:59
Intake Total 450 / 450 1620 / 1620
Balance 450 / 450 1620 / 1620
SaO2 98
Physical Exam
General: Respiratory Distress (Negative) and Comfortable
HEENT: Normocephalic and Anicteric
Cardiovascular: S1-S2 and Peripheral Edema (Negative)
Respiratory: Wheeze (Negative), Crackles (Right middle lung field), Rhonchi (Negative) and Non-Labored Respirations
GI: Soft, Non Distended, Non Tender and Normal Bowel Sounds
Neurology: AO x 3 and Tremors (Negative)
Skin: Warm and Dry
Labs/Micro/Reports
Lab Data
05/03/24 05:54
05/03/24 05:54
Microbiology
05/02/24 00:54 Sputum Respiratory Culture - Preliminary
Usual Respiratory Jaquelin
05/02/24 00:54 Sputum Gram Stain - Preliminary
05/02/24 19:19 Urine Legionella Urinary Antigen - Final
Negative for Legionella pneumophila Serogroup 1 antigen.
A negative result does not rule out the possiblity of
Legionella infection due to other serogroups or species of
Legionella. Clinical correlation is recommended.
05/02/24 19:19 Urine Streptococcus pneumoniae Antigen (M - Final
Negative for Streptococcus pneumoniae antigen.
A negative result does not exclude infection with
Streptococcus pneumoniae. Clinical correlation is
recommended.
05/02/24 09:40 Nose Nasal Screen MRSA (PCR) - Final
MRSA not detected - performed by PCR methodology.
05/01/24 21:43 Nasal Swab Influenza Types A & B (LISA) - Final
Negative for Influenza A & B, NAAT
Negative results must be combined with clinical observations
and patient history.
Nucleic Acid Amplification test (NAAT)performed on the
[employer] platform.
05/01/24 17:43 Sputum Respiratory Culture - Final
05/01/24 17:43 Sputum Gram Stain - Final
--- NOTE | 2024-05-03 11:28 | W.PN.ID1 ---
Date of Service
Date of Service: May 03, 2024
Today's Communication
Continue Unasyn.
Assessment / Plan
# RUL thick-walled cavitary lesion with airfluid level
# 3 weeks cough, fever, nightsweats
# Unintentional weight loss
- Suspect lung abscess.
- In process of TB workup
- Per IR, minimal fluid to aspirate
-Await QTB gold plus.
- Sputum AFB #1 , #2 pending. Need Sputum AFB #3.
If all 3 AFB smears neg, can dc airborne.
-Sputum culture: usual resp alejandro.
- Continue Unasyn.
-DC Vancomycin.
Chief Complaint
-: Pneumonia
Subjective / Review of Systems
Reports no further nightsweats. Cough improving, less productive.
Vital Signs / Physical Exam
Vital Signs
Vital Signs
Temp Pulse Resp BP Pulse Ox
98.0 F 71 18 123/78 98
05/03/24 07:30 05/03/24 07:30 05/03/24 07:30 05/03/24 07:30 05/03/24 07:30
Physical Exam
Constitutional: No Acute Distress and Comfortable
Cardiovascular: Regular Rate and S1/S2
Pulmonary: Clear
Gastrointestinal: Soft, Non Tender and Non Distended
Objective Data
Lab Data
Lab Results
05/03/24 05:54
05/03/24 05:54
Estimated Creat Clear > 125 ml/min 05/03/24 05:54
Total Bilirubin 1.0 mg/dl (0.2-1.3) 05/01/24 16:50
AST 25 U/L (17-59) 05/01/24 16:50
ALT 32 U/L (0-50) 05/01/24 16:50
Alkaline Phosphatase 92 U/L (38-126) 05/01/24 16:50
C-Reactive Protein 61.10 mg/L (0.0-10.00) H 05/01/24 16:50
Most recent labs reviewed.
Micro Results:
05/02/24 10:40 Blood Culture - Preliminary
Blood/Venous No Growth in 24 hours- Final report to follow
05/02/24 10:40 Blood Culture - Preliminary
Blood/Venous No Growth in 24 hours- Final report to follow
05/02/24 00:54 Respiratory Culture - Preliminary
Sputum Usual Respiratory Alejandro
Gram Stain - Preliminary
05/02/24 19:19 Legionella Urinary Antigen - Final
Urine Negative for Legionella pneumophila Serogroup 1 antigen.
A negative result does not rule out the possiblity of
Legionella infection due to other serogroups or species of
Legionella. Clinical correlation is recommended.
Streptococcus pneumoniae Antigen (M - Final
Negative for Streptococcus pneumoniae antigen.
A negative result does not exclude infection with
Streptococcus pneumoniae. Clinical correlation is
recommended.
05/02/24 15:45 Acid Fast Bacilli Smear - Pending
Sputum Acid Fast Bacilli Culture - Pending
05/02/24 09:40 Nasal Screen MRSA (PCR) - Final
Nose MRSA not detected - performed by PCR methodology.
05/01/24 21:43 Influenza Types A & B (LISA) - Final
Nasal Swab Negative for Influenza A & B, NAAT
Negative results must be combined with clinical observations
and patient history.
Nucleic Acid Amplification test (NAAT)performed on the
[employer] platform.
05/01/24 17:43 Respiratory Culture - Final
Sputum Gram Stain - Final
05/01/24 17:43 Acid Fast Bacilli Smear - Pending
Sputum Acid Fast Bacilli Culture - Pending
05/01/24 CXR Cavitary right upper lobe lesion.
05/01/[address]: There is a loculated thick-walled cavitary lesion with internal air-fluid level in the lower posterior aspect of the right upper lobe. This lesion measures approximately 4.5 x 5 x 4.5 cm
--- NOTE | 2024-05-03 14:55 | W.PN.HOSP.TC ---
Today's Communication/Plan
-
continue IV abx and follow cultures
Assessment / Plan
Assessment / Plan
29-year-old male productive cough body aches and fever with 15 pound weight loss over the past 2 months. He traveled to [place] in February. He said that the whole family was sick around that time and he never recovered completely. States that he
also has some pain on the right side when he coughs
# Cavitary lesion right upper lobe
Currently on vancomycin and Zosyn - follow cultures. ID consulted
Pulm consulted
Per IR, minimal fluid to aspirate
Check AFB and QTB gold plus
Patient on airborne precautions
# 15 pound weight loss
#Nonsmoker
#DVT prophylaxis-Lovenox
# Full code
Anticipated Discharge: > 48 hours
Subjective/Interval History
-
Date of Service: May 03, 2024
night sweats resolved, coughing improving
denies SOB
Objective Data
-
Labs:
Laboratory Results
05/03/24
05:54
WBC 7.8
Hgb 12.9 L
Hct 38.0 L
Plt Count 311
Sodium 140
Potassium 4.0
Chloride 105
Carbon Dioxide 25
BUN 11
Creatinine 0.8
Glucose 103 H
Calcium 9.7
Vital Signs:
Vital Signs
Temp Pulse Resp BP Pulse Ox
98.0 F 71 18 123/78 98
05/03/24 07:30 05/03/24 07:30 05/03/24 07:30 05/03/24 07:30 05/03/24 07:30
I&O
05/02/24 05/03/24 05/04/24
06:59 06:59 06:59
Intake Total 450 / 450 1620 / 1620
Balance 450 / 450 1620 / 1620
Physical Exam
-
General: No Apparent Distress
HEENT: Normocephalic and Atraumatic
Respiratory: Clear to Auscultation
Cardiac: S1/S2
Genito-urinary: No Costovertebral Tender
Neuro: AO x 3
Psych: Calm
Data Reviewed
-
Total Time Spent with Patient (in minutes): 42
Labs: Labs Reviewed by me
[2024-05-03 15:35] VITALS: BP 125/79
[2024-05-03 23:00] VITALS: BP 119/77
[2024-05-04] MEDS: UNASYN IV ×4 (05:49→23:12)
[2024-05-04 06:32] LABS: % Basophils 0.4 % (0-2); % Eosinophils 3.2 % (0-6); % Immature Granulocytes 0.3 % (0-0.5); % Lymphocytes 32.2 % (20.5-51.1); % Monocytes 8.2 % (1.7-9.3); % Neutrophils 55.7 % (42.2-75.2); Absolute Eosinophils 0.2 10^3/uL (0-0.7); Absolute Lymphocytes 2.4 10^3/uL (1.2-3.4); Absolute Monocytes 0.6 10^3/uL (0.1-0.6); Absolute Neutrophils 4.2 10^3/uL (1.4-6.5); Hematocrit 38.8 % (39.0-52.0); Hemoglobin 13.2 g/dL (13.0-18.0); Mean Corpuscular Hgb 28.4 pg (27.0-31.0); Mean Corpuscular Volume 83.6 fL (80.0-94.0); Mean Platelet Volume 8.8 fL (7.4-10.4); Nucleated Red Blood Cells % 0 % (-); Platelet Count 311 10^3/uL (130-400); Red Blood Cell Count 4.64 10^6/uL (4.70-6.10); Red Cell Dist. Width 11.5 % (11.5-14.5); White Blood Cell Count 7.5 10^3/uL (4.8-10.8)
[2024-05-04 07:10] VITALS: BP 137/77
[2024-05-04 07:34] LABS: Blood Urea Nitrogen 12 mg/dl (9-20); Calcium 9.8 mg/dl (8.4-10.2); Carbon Dioxide 29 mmol/L (22-30); Chloride 103 mmol/L (98-107); Estimated Creatinine Clearance > 125 ml/min; Glucose 100 mg/dl (70-99); Potassium 4.9 mmol/L (3.5-5.1); Sodium 140 mmol/L (135-145); eGFR > 60.00
--- NOTE | 2024-05-04 09:50 | W.PN.PUL.V3 ---
Today's Communication / Plan
-
Isolation until AFB smear �3 Back
Antibiotics per infectious disease.
Close outpatient radiographic follow-up and bronchoscopy if he does not improve-currently clinically improving-hold off on bronchoscopy
Assessment
-
Assessment: 29-year-old male with a past medical history of sinusitis who presents with cough and congestion. He apparently went to an urgent care and obtained a CXR which had concerning findings and he was recommended to obtain CT chest so he
came here to the ER. Vitals in the ER were stable and he was afebrile to 98.3 �F, saturating 98% on room air with BP 146/96. Labs showed leukocytosis to 13.1, CRP was elevated at 61, and COVID antigen was negative. Subsequent CT chest was
obtained showing a loculated thick-walled cavitary lesion in the posterior right upper lobe measuring 4.5 x 5 x 4.5. Respiratory culture + sputum AFB were collected in addition to blood cultures. Zosyn was given in the ER. He was admitted to the
floor with infectious disease consulted, antibiotics have been continued. Interventional radiology was consulted for aspiration however there is minimal fluid to aspirate so this was deferred. Patient has been also in reporting night sweats in
addition to unintentional weight loss. Pulmonary now consulted for additional management/recommendations.
Impression:
#Abnormal chest CT with posterior RUL/anterior RLL cavitary lesion with adjacent tree-in-bud/nodular opacities along the right major fissure
#Suspected RUL pneumonia/CAP with cavitation - unlikely a pulmonary abscess as no obvious air-fluid level seen upon my review of the CT chest; less likely malignancy
Plan:
.
, Clinically improving.
We've not seen
Increase activity.
Isolation per protocol.
Await AFB �3.
Continue antibiotics-Per infectious disease
Infectious disease followed-correspondence reviewed.
Closely radiographic follow-up as an outpatient.
If no improvement, then bronchoscopy is recommended - hold off for now.
Have low suspicion for TB, however he has traveled outside the country including [place] in 2017
QuantiFERON is pending
Replace electrolytes.
DVT prophylaxis.
Nutrition
Early mobilization.
Reviewed with nursing
Data:
CT Chest without Contrast 05-01-2024:
There is a loculated thick-walled cavitary lesion with internal air-fluid level in the lower posterior aspect of the right upper lobe.
This lesion measures approximately 4.5 x 5 x 4.5 cm in AP, transverse and craniocaudal dimensions respectively and does traverse the major fissure into the superior segment of the right lower lobe.
Differential diagnosis includes cavitary pulmonary malignancy and pulmonary abscess.
Biopsy/aspiration would be useful for further evaluation
Subjective Data
-
Date of Service:
Date of Service: May 04, 2024
Chief Complaint: Pulmonary Follow Up and Dyspnea Follow Up
Subjective:
Feels better, less mucus production, no chest pain, abdominal pain
Review of Systems
General: Other ( per HPI)
Objective Data
Data Reviewed
Vital Signs / I&O:
Vital Signs
Temp Pulse Resp BP Pulse Ox
97.8 F 59 16 137/77 95
05/04/24 07:10 05/04/24 07:10 05/04/24 07:10 05/04/24 07:10 05/04/24 07:10
Intake and Output
05/03/24 05/04/24 05/05/24
06:59 06:59 06:59
Intake Total 1620 / 1620 1620 / 1620
Balance 1620 / 1620 1620 / 1620
SaO2: 95
Physical Exam
General: Respiratory Distress (Negative) and Comfortable
HEENT: Normocephalic and Anicteric
Cardiovascular: Regular Rhythm and Peripheral Edema (Negative)
Respiratory: Wheeze (Negative), Crackles (Right middle lung field), Rhonchi (Negative) and Non-Labored Respirations
GI: Soft, Non Distended, Non Tender and Normal Bowel Sounds
Neurology: Awake, Alert, AO x 3 and Tremors (Negative)
Skin: Warm and Dry
Labs/Micro/Reports
Lab Data
05/04/24 05:26
05/04/24 05:26
Microbiology
05/01/24 17:43 Sputum Acid Fast Bacilli Smear - Preliminary
05/01/24 17:43 Sputum Acid Fast Bacilli Culture - Preliminary
05/02/24 10:40 Blood/Venous Blood Culture - Preliminary
No Growth in 24 hours- Final report to follow
05/02/24 10:40 Blood/Venous Blood Culture - Preliminary
No Growth in 24 hours- Final report to follow
05/02/24 00:54 Sputum Respiratory Culture - Preliminary
Usual Respiratory Jaquelin
05/02/24 00:54 Sputum Gram Stain - Preliminary
05/02/24 19:19 Urine Legionella Urinary Antigen - Final
Negative for Legionella pneumophila Serogroup 1 antigen.
A negative result does not rule out the possiblity of
Legionella infection due to other serogroups or species of
Legionella. Clinical correlation is recommended.
05/02/24 19:19 Urine Streptococcus pneumoniae Antigen (M - Final
Negative for Streptococcus pneumoniae antigen.
A negative result does not exclude infection with
Streptococcus pneumoniae. Clinical correlation is
recommended.
05/02/24 09:40 Nose Nasal Screen MRSA (PCR) - Final
MRSA not detected - performed by PCR methodology.
05/01/24 21:43 Nasal Swab Influenza Types A & B (LISA) - Final
Negative for Influenza A & B, NAAT
Negative results must be combined with clinical observations
and patient history.
Nucleic Acid Amplification test (NAAT)performed on the
[employer] platform.
05/01/24 17:43 Sputum Respiratory Culture - Final
05/01/24 17:43 Sputum Gram Stain - Final
--- NOTE | 2024-05-04 11:35 | W.PN.ID1 ---
Date of Service
Date of Service: May 04, 2024
Today's Communication
Continue Unasyn.
Await AFB smear x 3 results.
Assessment / Plan
# RUL thick-walled cavitary lesion with airfluid level
# 3 weeks cough, fever, nightsweats
# Unintentional weight loss
- Pt clinically improving.
- Suspect lung abscess.
- TB workup in progress
- Per IR, minimal fluid to aspirate
- QTB gold plus pending
- Sputum AFB #1 smear negative , #2 pending. #3 pending
If all 3 AFB smears neg, can dc airborne.
-Sputum culture: usual resp alejandro.
- Continue Unasyn.
Chief Complaint
-: Pneumonia
Subjective / Review of Systems
Feels good. Sputum now minimal.
Appetitite improving.
Vital Signs / Physical Exam
Vital Signs
Vital Signs
Temp Pulse Resp BP Pulse Ox
97.8 F 59 16 137/77 95
05/04/24 07:10 05/04/24 07:10 05/04/24 07:10 05/04/24 07:10 05/04/24 09:50
Physical Exam
Constitutional: No Acute Distress and Comfortable
Cardiovascular: Regular Rate and S1/S2
Pulmonary: Clear
Gastrointestinal: Soft, Non Tender and Non Distended
Objective Data
Lab Data
Lab Results
05/04/24 05:26
05/04/24 05:26
Estimated Creat Clear > 125 ml/min 05/04/24 05:26
Total Bilirubin 1.0 mg/dl (0.2-1.3) 05/01/24 16:50
AST 25 U/L (17-59) 05/01/24 16:50
ALT 32 U/L (0-50) 05/01/24 16:50
Alkaline Phosphatase 92 U/L (38-126) 05/01/24 16:50
C-Reactive Protein 61.10 mg/L (0.0-10.00) H 05/01/24 16:50
Most recent labs reviewed.
Micro Results:
05/02/24 10:40 Blood Culture - Preliminary
Blood/Venous No Growth in 48 hours- Final report to follow
05/02/24 10:40 Blood Culture - Preliminary
Blood/Venous No Growth in 48 hours- Final report to follow
05/02/24 00:54 Respiratory Culture - Final
Sputum Usual Respiratory Alejandro
Gram Stain - Final
05/04/24 08:06 Acid Fast Bacilli Smear - Pending
Sputum Acid Fast Bacilli Culture - Pending
05/01/24 17:43 Acid Fast Bacilli Smear - Preliminary
Sputum Acid Fast Bacilli Culture - Preliminary
05/03/24 16:54 Acid Fast Bacilli Smear - Pending
Sputum Acid Fast Bacilli Culture - Pending
05/02/24 19:19 Legionella Urinary Antigen - Final
Urine Negative for Legionella pneumophila Serogroup 1 antigen.
A negative result does not rule out the possiblity of
Legionella infection due to other serogroups or species of
Legionella. Clinical correlation is recommended.
Streptococcus pneumoniae Antigen (M - Final
Negative for Streptococcus pneumoniae antigen.
A negative result does not exclude infection with
Streptococcus pneumoniae. Clinical correlation is
recommended.
05/02/24 15:45 Acid Fast Bacilli Smear - negative
Sputum Acid Fast Bacilli Culture - pending
05/02/24 09:40 Nasal Screen MRSA (PCR) - Final
Nose MRSA not detected - performed by PCR methodology.
05/01/24 21:43 Influenza Types A & B (LISA) - Final
Nasal Swab Negative for Influenza A & B, NAAT
Negative results must be combined with clinical observations
and patient history.
Nucleic Acid Amplification test (NAAT)performed on the
[employer] platform.
05/01/24 17:43 Respiratory Culture - Final
Sputum Gram Stain - Final
05/01/24 CXR Cavitary right upper lobe lesion.
05/01/[address]: There is a loculated thick-walled cavitary lesion with internal air-fluid level in the lower posterior aspect of the right upper lobe. This lesion measures approximately 4.5 x 5 x 4.5 cm
--- NOTE | 2024-05-04 13:48 | W.PN.HOSP.TC ---
Addendum entered and electronically signed by Garrett Skinner MD 05/05/24 12:19:
correction- Pt not on Vanco and Zosyn- He is on Unasyn
Original Note:
Today's Communication/Plan
-
If smear 2 an d 3 ABF negative ? plan discharge
Assessment / Plan
Assessment / Plan
29-year-old male productive cough body aches and fever with 15 pound weight loss over the past 2 months. He traveled to [place] in February. He said that the whole family was sick around that time and he never recovered completely. States that he
also has some pain on the right side when he coughs
CVS: S1-S2 normal
Chest: CTA B/L
Abdomen: Soft, NT / Bowel sounds present
Extremities: No edema
# Cavitary lesion right upper lobe
Currently on vancomycin and Zosyn - follow cultures. ID consulted
Pulm and ID
No Bx now
Pt getting better
Treat as lung abscess and get repeat CT in 4-6 weeks
Holding off on Bronch also
Check AFB and QTB gold plus ( pending)
Patient on airborne precautions
# 15 pound weight loss
#Nonsmoker
#DVT prophylaxis-Lovenox
# Full code
D/W Pulm, ID and IR
Anticipated Discharge: Within 24 hours
Subjective/Interval History
-
Date of Service: May 04, 2024
Objective Data
-
Labs:
Laboratory Results
05/04/24
05:26
WBC 7.5
Hgb 13.2
Hct 38.8 L
Plt Count 311
Sodium 140
Potassium 4.9
Chloride 103
Carbon Dioxide 29
BUN 12
Creatinine 0.9
Glucose 100 H
Calcium 9.8
Vital Signs:
Vital Signs
Temp Pulse Resp BP Pulse Ox
97.8 F 59 16 137/77 95
05/04/24 07:10 05/04/24 07:10 05/04/24 07:10 05/04/24 07:10 05/04/24 09:50
I&O
05/03/24 05/04/24 05/05/24
06:59 06:59 06:59
Intake Total 1620 / 1620 1620 / 1620
Balance 1620 / 1620 1620 / 1620
--- NOTE | 2024-05-04 13:50 | CM ---
Case management following for d/c planning
Chart reviewed
Remains on IV antibiotics, following cx
Pulmonary and ID following
CM will follow for d/c needs
Plan - anticipate home no needs
[2024-05-04 15:45] VITALS: BP 131/75
[2024-05-04 23:35] VITALS: BP 123/79
[2024-05-05] MEDS: UNASYN IV ×2 (05:50→13:14)
[2024-05-05 07:00] VITALS: BP 123/78
--- NOTE | 2024-05-05 10:20 | W.PN.PUL.V3 ---
Today's Communication / Plan
-
Isolation until AFB negative x 3
Infectious disease following-antibiotics per infectious disease
Outpatient radiographic follow-up
Outpatient pulmonary follow-up
No immediate bronchoscopy/BAL recommended at this time
Assessment
-
Assessment: 29-year-old male with a past medical history of sinusitis who presents with cough and congestion. He apparently went to an urgent care and obtained a CXR which had concerning findings and he was recommended to obtain CT chest so he
came here to the ER. Vitals in the ER were stable and he was afebrile to 98.3 �F, saturating 98% on room air with BP 146/96. Labs showed leukocytosis to 13.1, CRP was elevated at 61, and COVID antigen was negative. Subsequent CT chest was
obtained showing a loculated thick-walled cavitary lesion in the posterior right upper lobe measuring 4.5 x 5 x 4.5. Respiratory culture + sputum AFB were collected in addition to blood cultures. Zosyn was given in the ER. He was admitted to the
floor with infectious disease consulted, antibiotics have been continued. Interventional radiology was consulted for aspiration however there is minimal fluid to aspirate so this was deferred. Patient has been also in reporting night sweats in
addition to unintentional weight loss. Pulmonary now consulted for additional management/recommendations.
Impression:
#Abnormal chest CT with posterior RUL/anterior RLL cavitary lesion with adjacent tree-in-bud/nodular opacities along the right major fissure
#Suspected RUL pneumonia/CAP with cavitation - unlikely a pulmonary abscess as no obvious air-fluid level seen upon my review of the CT chest; less likely malignancy
Plan:
The patient continues to clinically improve
Not requiring oxygen
Increase activity
Isolation per protocol.
Await AFB �3-1/3 negative thus far
Continue antibiotics per infectious disease
Infectious disease followed-correspondence reviewed.
Closely radiographic follow-up as an outpatient.
If no improvement, then bronchoscopy is recommended - hold off for now.
Have low suspicion for TB, however he has traveled outside the country including [place] in 2017
QuantiFERON is pending
Continue to replace electrolytes
DVT prophylaxis.
Nutrition
Early mobilization.
Clinically improving and do not feel interventions such as bronchoscopy are indicated at this time
Patient will follow-up with pulmonary in the outpatient setting including follow-up radiographically
Reviewed with nursing and primary team
Data:
CT Chest without Contrast 05-01-2024:
There is a loculated thick-walled cavitary lesion with internal air-fluid level in the lower posterior aspect of the right upper lobe.
This lesion measures approximately 4.5 x 5 x 4.5 cm in AP, transverse and craniocaudal dimensions respectively and does traverse the major fissure into the superior segment of the right lower lobe.
Differential diagnosis includes cavitary pulmonary malignancy and pulmonary abscess.
Biopsy/aspiration would be useful for further evaluation
Subjective Data
-
Date of Service:
Date of Service: May 05, 2024
Chief Complaint: Pulmonary Follow Up and Dyspnea Follow Up
Subjective:
Feels better, decreased sputum production, no chest pain, shortness of breath, abdominal pain
Review of Systems
General: Other (Per HPI)
Objective Data
Data Reviewed
Vital Signs / I&O:
Vital Signs
Temp Pulse Resp BP Pulse Ox
97.9 F 55 16 123/78 99
05/05/24 07:00 05/05/24 07:00 05/05/24 07:00 05/05/24 07:00 05/05/24 07:00
Intake and Output
05/04/24 05/05/24 05/06/24
06:59 06:59 06:59
Intake Total 1620 / 1620 1919
Balance 1620 / 1620 1919
SaO2: 99
Physical Exam
General: Respiratory Distress (Negative) and Comfortable
HEENT: Normocephalic and Anicteric
Cardiovascular: Regular Rhythm and Peripheral Edema (Negative)
Respiratory: Wheeze (Negative), Crackles (Right middle lung field), Rhonchi (Negative) and Non-Labored Respirations
GI: Soft, Non Distended, Non Tender and Normal Bowel Sounds
Neurology: Awake, Alert, AO x 3 and Tremors (Negative)
Skin: Warm and Dry
Labs/Micro/Reports
Lab Data
05/04/24 05:26
05/04/24 05:26
Microbiology
05/02/24 15:45 Sputum Acid Fast Bacilli Smear - Preliminary
05/02/24 15:45 Sputum Acid Fast Bacilli Culture - Preliminary
05/02/24 10:40 Blood/Venous Blood Culture - Preliminary
No Growth in 48 hours- Final report to follow
05/02/24 10:40 Blood/Venous Blood Culture - Preliminary
No Growth in 48 hours- Final report to follow
05/02/24 00:54 Sputum Respiratory Culture - Final
Usual Respiratory Jaquelin
05/02/24 00:54 Sputum Gram Stain - Final
05/01/24 17:43 Sputum Acid Fast Bacilli Smear - Preliminary
05/01/24 17:43 Sputum Acid Fast Bacilli Culture - Preliminary
05/02/24 19:19 Urine Legionella Urinary Antigen - Final
Negative for Legionella pneumophila Serogroup 1 antigen.
A negative result does not rule out the possiblity of
Legionella infection due to other serogroups or species of
Legionella. Clinical correlation is recommended.
05/02/24 19:19 Urine Streptococcus pneumoniae Antigen (M - Final
Negative for Streptococcus pneumoniae antigen.
A negative result does not exclude infection with
Streptococcus pneumoniae. Clinical correlation is
recommended.
05/02/24 09:40 Nose Nasal Screen MRSA (PCR) - Final
MRSA not detected - performed by PCR methodology.
--- NOTE | 2024-05-05 12:10 | W.PN.HOSP.TC ---
Addendum entered and electronically signed by Garrett Skinner MD 05/05/24 13:23:
Discussed with infectious disease. Okay to discharge the patient with outpatient follow-up with pulmonary.
AFB smears are pending patient to remain in isolation at home till AFB is back.
Discussed with Pulm
Discharge time 33 min
Original Note:
Today's Communication/Plan
-
Continue AB
Assessment / Plan
Assessment / Plan
29-year-old male productive cough body aches and fever with 15 pound weight loss over the past 2 months. He traveled to [place] in February. He said that the whole family was sick around that time and he never recovered completely. States that he
also has some pain on the right side when he coughs
CVS: S1-S2 normal
Chest: CTA B/L
Abdomen: Soft, NT / Bowel sounds present
Extremities: No edema
# Cavitary lesion right upper lobe
Currently on Unasyn
No Bx now
Pt getting better
Treat as lung abscess and get repeat CT in 4-6 weeks
Holding off on Bronch also
Check AFB and QTB gold plus ( pending)
Patient on airborne precautions
# 15 pound weight loss
#Nonsmoker
#DVT prophylaxis-Lovenox
# Full code
D/W Pulm, ID
Called micro lab AFB is a send out test once it is negative. 2 and 3 specimens are not back
Called chemistry lab for QuantiFERON gold it is a send out test with turnaround time 2-4 days after the lab gets it. That is not back either.
Patient anxious to go home.
if he goes home will need isolation till above are back
Anticipated Discharge: Within 24 hours
Subjective/Interval History
-
Date of Service: May 05, 2024
Objective Data
-
Vital Signs:
Vital Signs
Temp Pulse Resp BP Pulse Ox
97.9 F 55 16 123/78 99
05/05/24 07:00 05/05/24 07:00 05/05/24 07:00 05/05/24 07:00 05/05/24 10:20
I&O
05/04/24 05/05/24 05/06/24
06:59 06:59 06:59
Intake Total 1620 / 1620 1919
Balance 1620 / 1620 1919
--- NOTE | 2024-05-05 12:50 | W.PN.ID1 ---
Date of Service
Date of Service: May 05, 2024
Today's Communication
OK to dc home.
See below.
Assessment / Plan
# RUL thick-walled cavitary lesion with airfluid level
# 3 weeks cough, fever, night sweats
# Unintentional weight loss
- Pt clinically improving.
- Suspect lung abscess.
- TB workup in progress
- Per IR, minimal fluid to aspirate
- QTB gold plus pending
- Sputum AFB #1 smear negative , #2 negative. #3 pending
If all 3 AFB smears neg, can dc airborne.
-Sputum culture: usual resp alejandro.
- Can dc home on Augmentin 875mg po bid through 05/27/24.
- Repeat CT in several weeks, follow-up with Pulm.
- Stay at home until 3rd AFB smear result available. I will call him regarding when to come off isolation.
Chief Complaint
-: Pneumonia
Subjective / Review of Systems
Feels good. Wants to go home.
Vital Signs / Physical Exam
Vital Signs
Vital Signs
Temp Pulse Resp BP Pulse Ox
97.9 F 55 16 123/78 99
05/05/24 07:00 05/05/24 07:00 05/05/24 07:00 05/05/24 07:00 05/05/24 10:20
Physical Exam
Constitutional: No Acute Distress and Comfortable
Pulmonary: Clear
Objective Data
Lab Data
Lab Results
05/04/24 05:26
05/04/24 05:26
Estimated Creat Clear > 125 ml/min 05/04/24 05:26
Total Bilirubin 1.0 mg/dl (0.2-1.3) 05/01/24 16:50
AST 25 U/L (17-59) 05/01/24 16:50
ALT 32 U/L (0-50) 05/01/24 16:50
Alkaline Phosphatase 92 U/L (38-126) 05/01/24 16:50
C-Reactive Protein 61.10 mg/L (0.0-10.00) H 05/01/24 16:50
Most recent labs reviewed.
Micro Results:
05/02/24 10:40 Blood Culture - Preliminary
Blood/Venous No Growth in 72 hours- Final report to follow
05/02/24 10:40 Blood Culture - Preliminary
Blood/Venous No Growth in 72 hours- Final report to follow
05/02/24 15:45 Acid Fast Bacilli Smear - Negative
Sputum Acid Fast Bacilli Culture - Preliminary
05/02/24 00:54 Respiratory Culture - Final
Sputum Usual Respiratory Alejandro
Gram Stain - Final
05/04/24 08:06 Acid Fast Bacilli Smear - Pending
Sputum Acid Fast Bacilli Culture - Pending
05/01/24 17:43 Acid Fast Bacilli Smear - NEGATIVE
Sputum Acid Fast Bacilli Culture - Preliminary
05/03/24 16:54 Acid Fast Bacilli Smear - Pending
Sputum Acid Fast Bacilli Culture - Pending
05/02/24 19:19 Legionella Urinary Antigen - Final
Urine Negative for Legionella pneumophila Serogroup 1 antigen.
A negative result does not rule out the possiblity of
Legionella infection due to other serogroups or species of
Legionella. Clinical correlation is recommended.
Streptococcus pneumoniae Antigen (M - Final
Negative for Streptococcus pneumoniae antigen.
A negative result does not exclude infection with
Streptococcus pneumoniae. Clinical correlation is
recommended.
05/02/24 09:40 Nasal Screen MRSA (PCR) - Final
Nose MRSA not detected - performed by PCR methodology.
05/01/24 21:43 Influenza Types A & B (LISA) - Final
Nasal Swab Negative for Influenza A & B, NAAT
Negative results must be combined with clinical observations
and patient history.
Nucleic Acid Amplification test (NAAT)performed on the
[employer] platform.
05/01/24 17:43 Respiratory Culture - Final
Sputum Gram Stain - Final
05/01/24 CXR Cavitary right upper lobe lesion.
05/01/[address]: There is a loculated thick-walled cavitary lesion with internal air-fluid level in the lower posterior aspect of the right upper lobe. This lesion measures approximately 4.5 x 5 x 4.5 cm
Care Review
Plan reviewed with: Physician (Dr. Skinner)
--- NOTE | 2024-05-05 13:29 | W.DS.TRANS ---
Addendum entered and electronically signed by Garrett Skinner MD 05/05/24 15:03:
Dictation- [id number]
Original Note:
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
-
Discharge Instructions:
Discharge Diagnosis/Procedures Cavitary lesion in the right upper lobe
Diet As tolerated
Activity As tolerated
Driving Restrictions As prior to admission
Instructions:
Stand-Alone Forms:
Changes to Home Medications: Yes
Discharge Medications:
DC Medications w/original date entered in [employer]
amoxicillin 875 mg-potassium clavulanate 125 mg tablet 1 tab PO Q12H Infection #45 tabs 05/05/24
Home Medication Changes
above new
Pending Results: Yes
Additional Pending Results:
AFB smear and QuantiFERON gold
[2024-05-05 13:56] VITALS: BP 126/76
--- NOTE | 2024-05-05 13:58 | CM ---
Pt for d/c
Has ride with to home
Plan - home no needs
[2024-05-06 01:57] LABS: Quantiferon Mitogen minus NIL 2.55 IU/mL; Quantiferon NIL 0.04 IU/mL; Quantiferon Plus TB2 minus NIL 0.01 IU/mL (<=0.34); Quantiferon TB Gold Plus Negative (Negative)
--- NOTE | 2024-05-13 09:32 | PN.CDI ---
Addendum entered and electronically signed by Garrett Skinner MD 05/25/24 07:47:
Need more testing as OP before I can clarify the nature of cavitation
Original Note:
CDI
- -
CDI:
Physician Documentation Request
Admit Date: 05/01/24 20:23
Dear Doctor Susanne,
Patient admitted with cavitary lesion in the right upper lobe.
Discharge Summary, 'Cavitary lesion in the right upper lobe.
05/05 Pulmonary note, 'Suspected RUL pneumonia/CAP with cavitation.'
Due to conflicting documentation, please clarify in your note the diagnosis, after careful study:
RUL pneumonia/CAP with cavitation
Cavitary lesion in the right upper lobe
Other
Use of terms such as suspected, likely, concern for, or probable (associated with a specific diagnosis that is being evaluated, monitored, or treated as if it exists) are acceptable and can be coded in the inpatient setting, when documented at the
time of discharge.
Thank you,
Mia FAIRCHILDN,RN,CCDS
CDI Specialist
Available via [employer] text
Please use your independent medical judgment in providing your response.
== END 2024-05-05 13:56 | disposition home or self-care (01) | DRG 179 ==
LOC: 3 WEST ACU 20:23
PROVIDERS: Clinical Nurse Specialist Family Health; Nurse Practitioner Gerontology; Physician Assistant; ADMITTING PHYSICIAN Hospitalist; ATTENDING PHYSICIAN Hospitalist; CONSULT PHYSICIAN Internal Medicine Critical Care Medicine; CONSULT PHYSICIAN Internal Medicine Infectious Disease; EMERGENCY PHYSICIAN Emergency Medicine; FAMILY PHYSICIAN Family Medicine
DX: J85.2 Abscess of lung without pneumonia (principal); R63.4 Abnormal weight loss; Z68.23 Body mass index [BMI] 23.0-23.9, adult; Z87.891 Personal history of nicotine dependence
CPT/HCPCS: 71250; 80048; 80053; 80202; 85025; 86140; 86480; 87015; 87040; 87070; 87116; 87205; 87449; 87502; 87641; 87811; 87899; 96365; 96367; 97161; 99284

== ENCOUNTER → 2024-06-09 10:20 | Outpatient (REF) | payer BC, SELFPAY | LOC: RAD 10:20 | PROVIDERS: ATTENDING PHYSICIAN Internal Medicine Critical Care Medicine; FAMILY PHYSICIAN Family Medicine | DX: R91.8 Other nonspecific abnormal finding of lung field (principal) | CPT/HCPCS: 71250 ==

== ENCOUNTER → 2024-10-13 09:02 | Outpatient (REF) | payer BC, SELFPAY | LOC: HWRAD 09:02 | PROVIDERS: ATTENDING PHYSICIAN Internal Medicine Critical Care Medicine; FAMILY PHYSICIAN Family Medicine | DX: Z87.01 Personal history of pneumonia (recurrent) (principal); R91.1 Solitary pulmonary nodule | CPT/HCPCS: 71250 ==